=== PATIENT | male | born 1995 | race Two or more races ===

== ENCOUNTER 2022-03-12 20:00 | Emergency (ER) | payer SELFPAY ==
[~2022-03-12] VITALS: Ht 170.2 cm; Wt 93.0 kg
[2022-03-12] MEDS ORDERED: ASPirin 81 mg TAB PO ONE (20:30)
[2022-03-12] MEDS ORDERED: KETOROLAC TROMETH 30 MG/ML 1ML VIAL IV ONE (20:30)
[2022-03-12 21:30] LABS: Basophils # (auto) 0.1 10 ^3/uL (0-0.2); Basophils % (auto) 0.8 % (0.0-2.0); Eosinophils # (auto) 0.3 10 ^3/uL (0-0.8); Eosinophils % (auto) 2.4 % (0.0-7.0); Hematocrit 47.7 % (41.0-53.0); Hemoglobin 16.5 g/dL (13.5-17.5); Lymphocytes # (auto) 2.1 10 ^3/uL (0.4-5.4); Lymphocytes % (auto) 16.8 % (10.0-50.0); Mean Corpuscular Hemoglobin 29.1 pg (28.0-32.0); Mean Corpuscular Hgb Conc. 34.5 g/dL (32.0-36.0); Mean Corpuscular Volume 84.4 fL (80.0-100.0); Monocytes % (auto) 7.6 % (0.0-12.0); Neutrophils # (auto) 9.2 10 ^3/uL (1.6-8.6); Neutrophils % (auto) 72.4 % (37.0-80.0); Red Blood Cells 5.66 10^6/uL (4.5-5.90); Red Cell Distribution Width 13.5 % (11.8-14.3); White Blood Cell 12.7 10^3/uL (4.4-10.8)
[2022-03-12 21:57] LABS: Albumin 4.1 g/dL (3.4-5.0); BUN/Creatinine Ratio 11.6; Calcium 8.6 mg/dL (8.5-10.1)
[2022-03-12 22:00] LABS: Bilirubin, Total 0.3 mg/dL (0.2-1.0); Total Protein 7.7 g/dL (6.4-8.2)
[2022-03-12 23:18] VITALS: BP 130/98
== END 2022-03-12 23:21 | disposition home or self-care (01) ==
LOC: ER 20:02
DX: K80.20 Calculus of gallbladder without cholecystitis without obstruction (principal)
CPT/HCPCS: 36415; 71046; 76705; 80053; 83735; 83880; 84484; 85025; 85379; 93005; 96374; 99285; J1885